=== PATIENT | female | born 1995 | race Caucasian/White ===

== ENCOUNTER 2024-07-05 20:36 | Emergency (ER) | payer SELFPAY ==
[2024-07-05 20:50] VITALS: BP 122/66; PULSE 89; RESP 18; TEMP 36.5; O2SAT 100
== END 2024-07-05 23:00 | disposition left against medical advice (07) ==
LOC: ANHED 23:14
DX: S61.451A Open bite of right hand, initial encounter (principal); W54.0XXA Bitten by dog, initial encounter
CPT/HCPCS: 99199

== ENCOUNTER 2024-07-05 22:52 | Emergency (ER) | payer SELFPAY ==
[2024-07-05 22:54] VITALS: BP 114/88; PULSE 81; RESP 18; TEMP 36.8; O2SAT 99
--- NOTE | 2024-07-05 23:22 | ED_ITS ---
HPI - Wound/Laceration General Stated Complaint: dog bite Time Seen by Provider: 07/05/24 22:58 Source: patient Mode of arrival: ambulatory Limitations: no limitations History of Present Illness HPI narrative: 28-year-old female with a laceration to the palmar surface of her index finger and 2nd finger on the right side after a family pet cause the puncture wound. Has good range of motion is 10 to her currently no bleeding. Onset (ago): hour(s) Location: other Extremity Location: Right: hand ( Laceration palmar surface of her right hand between the index finger and 2nd finger) Place: home Patient tetanus UTD: No Context: accidental Associated symptoms: pain Review of Systems Review of Systems: All systems reviewed & are unremarkable except as noted in HPI and below PMFSH Past Medical History Medical History Patient denies medical problems Exam Const: General: healthy appearing Nutritional Appearance: well nourished Orientation/consciousness: patient oriented x3 Limitations: no limitations Neck: Neck: normal visual inspection Chest: Chest palpation & inspection: normal inspection of the chest Resp: Effort & Inspection: normal respiratory effort Auscultation: clear to auscultation bilaterally Cardio: Rate: regular rate Rhythm: regular rhythm Skin: Wounds: wounds noted Other: 2cm gaping laceration palmar surface of her index finger and 2nd finger Course Course Emergency Course: sutures applied to laceration site patient was updated with her tetanus and amoxicillin was given p.o.. Vital Signs Vital signs: Vital Signs Temperature 36.8 C 07/05/24 22:54 Pulse Rate 81 07/05/24 22:54 Respiratory Rate 18 07/05/24 22:54 Blood Pressure 114/88 07/05/24 22:54 Pulse Oximetry 99 07/05/24 22:54 Oxygen Delivery Room Air 07/05/24 22:54 Temperature 36.8 C 07/05/24 22:54 Pulse Rate 81 07/05/24 22:54 Respiratory Rate 18 07/05/24 22:54 Blood Pressure 114/88 07/05/24 22:54 Pulse Oximetry 99 07/05/24 22:54 Oxygen Delivery Room Air 07/05/24 22:54 Procedures Laceration Laceration 1: Date: 07/05/24 Time: 23:26 Site: hand Side (If applicable): right Size (cm): 2 Description: stellate Depth: simple, single layer Local Anesthetic: lidocaine 1% Amount of anesthesia used (mL): 5 Pre-repair: wound explored ====== Skin Level ====== Skin layer closed with: vicryl Size (cm): 5-0 Number of sutures: 5 Technique: simple, interrupted ====== Subcutaneous Layer ====== ====== Muscle Layer ====== ====== Tendon Layer ====== Critical Care Time Critical Care Time Critical Care Time: No Discharge Plan Discharge Clinical Impression: Laceration Patient Disposition: Home, Self-Care Condition: Stable Instructions: Antibiotic Form, Laceration (ED) Additional Instructions: advised to take Tylenol as needed for pain, take antibiotics as prescribed and follow-up with primary in 1 week for suture. Patient Language: Albanian Prescriptions: New amoxicillin 500 mg tablet 500 mg PO TID Qty: 30 0RF amoxicillin 500 mg tablet 500 mg PO TID Qty: 30 0RF Follow-up/Referrals: UNKNOWN,DOCTOR [Primary Care Provider] - Time of Disposition: 23:30
[2024-07-05] MEDS: AMOXICILLIN 500 MG CAPSULE PO (23:38)
[2024-07-05] MEDS: TETANUS,DIPHTHERIA,AC PERTUSSIS ADULT 0.5 ML (ADACEL) IM (23:39)
[2024-07-05] MEDS: LIDOCAINE 2% PF LOCAL INJ 5 ML VIAL 10 ML INFILTRATE (23:40)
== END 2024-07-05 23:55 | disposition home or self-care (01) ==
LOC: CHSED 23:30
PROVIDERS: Emergency Provider Emergency Medicine
DX: S61.411A Laceration without foreign body of right hand, initial encounter (principal); W55.03XA Scratched by cat, initial encounter; Z23 Encounter for immunization
CPT/HCPCS: 12001; 90471; 90715; 99283; A9270; J2003